=== PATIENT | male | born 1990 | race Caucasian/White ===

== ENCOUNTER 2016-12-08 08:34 | Emergency (ER) | payer SELFPAY ==
--- NOTE | 2016-12-08 08:45 | UCPHY ---
H & P Patient Type: New HPI/ROS: CHIEF COMPLAINT: Sore throat. HISTORY OF PRESENT ILLNESS: The patient is a 26-year-old male who presents with sore throat that began 5 days ago. He was sick with an upper respiratory infection 10 days ago with nasal and chest congestion but these symptoms resolved on Saturday. 2 days later he developed a sore throat that has continued through today. He admits associated green rhinorrhea and mild dry cough. He has no continued congestion. No cough, no sinus pressure, no headache. He denies fever at any point. REVIEW OF SYSTEMS: Constitutional: No fever, no chills. Eyes: No diplopia. ENT: As above. Cardiovascular: No chest pain, no palpitations. Respiratory: No cough, no shortness of breath, no wheezing. Gastrointestinal: No nausea vomiting or diarrhea. No abdominal pain. Genitourinary: No hematuria or frequency. Musculoskeletal: No back pain. Skin: No rashes. Neurological: No headache. 10 point ROS otherwise negative Past Medical/Surgical History: Denies. Social History: Here with girlfriend. Physical Exam: General Appearance: Alert, no distress. Afebrile. Normal phonation. No respiratory distress. Eyes: Pupils equal and round no pallor or injection. No icterus ENT, Mouth: Mucous membranes moist. Pharynx not erythematous and without exudate. TM Clear. Sinuses nontender nor painful if he leans over. Neck: No adenopathy. Supple. No JVD. Trachea in midline. Respiratory: There are no retractions, lungs are clear to auscultation. Cardiovascular: Regular rate and rhythm. Abdomen: Soft and nontender, no masses, bowel sounds normal. Femoral pulses equal. Neurological: Ox3. No motor weakness. Sensation intact. Gait nl. Skin: Warm and dry, no rashes. Musculoskeletal: No joint swelling. Extremities: No edema. Homans sign negative. No cords. Psychiatric: Patient is oriented X 3, there is no agitation Constitutional: Initial Vital Signs Temperature (C) 36.6 C 12/08/16 08:47 Heart Rate 74 12/08/16 08:47 Respiratory Rate 16 12/08/16 08:47 Blood Pressure 136/82 H 12/08/16 08:47 O2 Sat (%) 95 12/08/16 08:47 O2 Delivery Mode Room Air Allergies/Adverse Reactions: No Known Allergies Allergy (Unverified 12/08/16 08:53) Home Medications: Medication Instructions Recorded NK [No Known Home Meds] 12/08/16 Medical Decision Making ED Course/Re-evaluation: Strep swab was obtained and sent to the lab. Strep swab returns negative. Differential Diagnosis: Differential diagnosis includes but is not limited to the following: URI, pharyngitis, strep pharyngitis, otitis media, sinusitis, bronchitis, pneumonia. Departure - Departure Disposition: Home, Routine, Self-Care Clinical Impression: Viral syndrome Pharyngitis Qualifiers: Pharyngitis/tonsillitis etiology: unspecified etiology Qualified Code(s): J02.9 - Acute pharyngitis, unspecified Condition: Good Instructions: Viral Syndrome (ED) Additional Instructions: Drink plenty of fluids and be sure to get rest. Return for any serious worsening of condition. Recheck with PCP in a week if not all better. In the interim if you develop fever you need to return Referrals: NONE *PRIMARY CARE P,. [Primary Care Provider] - As per Instructions Stand Alone Forms: Work Excuse - PQRS PQRS Measurement: Does not apply. Report Scribed for: Daniel Urbina Report Scribed by: Kenan Suggs Date of Report: 12/08/16 Time of Report: 08:45 Physician Review and Approval Statement: 12/08/16 09:23 Portions of this note were transcribed by a medical laboratory scientist. I personally performed a history, physical exam, medical decision making, and confirmed accuracy of information the transcribed note.
[2016-12-08 08:49] VITALS: BP 136/82; PULSE 74; RESP 16; TEMP 97.9; O2SAT 95
== END 2016-12-08 09:39 | disposition home or self-care (01) ==
LOC: CED 08:34
DX: J02.9 Acute pharyngitis, unspecified (principal)
CPT/HCPCS: 87880-PO; G0463-PO